=== PATIENT | male | born 1950 | race Caucasian/White ===

== ENCOUNTER 2023-08-28 06:52 | Day surgery (SDC) | payer MEDICARE ==
[2023-08-28] MEDS ORDERED: Lactated Ringers 1,000 ML IV SCH (07:00)
[2023-08-28] MEDS ORDERED: BETADINE 5% OPHTHALMIC 30 ML OP ONE (07:00)
[2023-08-28] MEDS ORDERED: NON-FORMULARY ITEM OP ONE (07:00)
[2023-08-28] MEDS ORDERED: cefUROXime sodium 0.005 GM in Sodium Chloride Flush 30 ML*** 0.5 ML IJ ONE (07:00)
[2023-08-28] MEDS ORDERED: Ak-Dilate OPHTHALMIC*** 1.065 ML, Cyclogyl 1% OPHTH SOL 1.065 ML, GATIFLOXACIN 0.5% OPH... OP ONE ×4 (07:00)
[2023-08-28] MEDS ORDERED: TETRACAINE 0.5% STERI-UNIT SOL OP ONE ×2 (07:00)
[2023-08-28] MEDS ORDERED: Lactated Ringers 1,000 ML IV ONE (07:12)
[2023-08-28 07:28] VITALS: RESP 18; TEMP 98.4
[2023-08-28] MEDS ORDERED: ACETAZOLAMIDE 250 MG TABLET PO ONE (09:00)
[2023-08-28] MEDS ORDERED: Zofran 4 MG/2 ML VIAL IV PRN (09:00)
[2023-08-28] MEDS ORDERED: Epinephrine Preservative Free 1 MG/ML IJ ONE (09:00)
[2023-08-28] MEDS ORDERED: DIPRIVAN 200 MG/20 ML IV ONE (09:21)
[2023-08-28 09:43] VITALS: BP 159/89; PULSE 70; O2SAT 96
== END 2023-08-28 09:45 | disposition home or self-care (01) ==
LOC: SDC 06:52
PROVIDERS: ATTEND Ophthalmology
DX: H25.811 Combined forms of age-related cataract, right eye (principal); E11.9 Type 2 diabetes mellitus without complications
CPT/HCPCS: 82947; C1780; J0171; J2704; A9270-GY

== ENCOUNTER 2023-09-27 05:44 | Day surgery (SDC) | payer MEDICARE ==
[~2023-09-27 05:44] MED LIST: Ak-Dilate OPHTHALMIC*** 1.065 ML, Cyclogyl 1% OPHTH SOL 1.065 ML, GATIFLOXACIN 0.5% OPH... OP ONE; BETADINE 5% OPHTHALMIC 30 ML OP ONE; Lactated Ringers 1,000 ML IV SCH; NON-FORMULARY ITEM OP ONE; TETRACAINE 0.5% STERI-UNIT SOL OP ONE; cefUROXime sodium 0.005 GM in Sodium Chloride Flush 30 ML*** 0.5 ML IJ ONE
[2023-09-27] MEDS ORDERED: Lactated Ringers 1,000 ML IV ONE (06:08)
[2023-09-27] MEDS ORDERED: DIPRIVAN 200 MG/20 ML IV ONE (07:31)
[2023-09-27 07:56] VITALS: RESP 16
[2023-09-27] MEDS ORDERED: Epinephrine Preservative Free 1 MG/ML IJ ONE (08:00)
[2023-09-27 08:07] VITALS: BP 144/74; PULSE 70; O2SAT 97
[2023-09-27 08:19] VITALS: TEMP 98
[2023-09-27] MEDS ORDERED: Zofran 4 MG/2 ML VIAL IV PRN (09:00)
[2023-09-27] MEDS ORDERED: ACETAZOLAMIDE 250 MG TABLET PO ONE (09:00)
== END 2023-09-27 08:17 | disposition home or self-care (01) ==
LOC: SDC 05:44
PROVIDERS: ATTEND Ophthalmology
DX: H25.812 Combined forms of age-related cataract, left eye (principal); E11.9 Type 2 diabetes mellitus without complications; I10 Essential (primary) hypertension; E78.5 Hyperlipidemia, unspecified; Z79.899 Other long term (current) drug therapy
CPT/HCPCS: 82947; 93005; 99100; C1780; J0171; J2704; A9270-GY

== ENCOUNTER 2025-02-25 09:10 | Day surgery (SDC) | payer MEDICARE ==
[2025-02-25] MEDS ORDERED: dexAMETHasone sodium phosphate IJ ONE (09:11)
[2025-02-25] MEDS ORDERED: Sodium Chloride 0.9(Preservative Free) 10 ML IJ ONE (09:11)
[2025-02-25] MEDS ORDERED: propofoL IV ONE (11:26)
[2025-02-25] MEDS ORDERED: MORPHINE SULFATE 2 MG INJ ONE (11:43)
--- NOTE | 2025-02-25 13:13 | XRAY ---
Indication: Right L4-S1 transforaminal MARYLU. Intraoperative fluoroscopy provided for 26 seconds. 5 digital spot image submitted for interpretation demonstrates posterior needle tips projecting over expected right L4 and L5 nerve roots. Small amount of contrast injected for needle tip placement. Correlate with intraoperative findings/report.
--- NOTE | 2025-02-25 13:15 | XRAY ---
26 seconds of fluoroscopy was used in surgery for a right L4-S1 transforaminal MARYLU.
== END 2025-02-25 12:08 | disposition home or self-care (01) ==
LOC: SDC-PAIN 09:10
PROVIDERS: ATTEND Psychiatry & Neurology Pain Medicine
DX: M54.16 Radiculopathy, lumbar region (principal); E11.9 Type 2 diabetes mellitus without complications
CPT/HCPCS: 64483; 64484; 72100; 82947; J1100; J2270; J2704; Q9966